=== PATIENT | female | born 1970 | race African-American/Black ===

== ENCOUNTER 2020-07-08 11:58 | Emergency (ER) | payer MEDICAID ==
[~2020-07-08] VITALS: Ht 170.2 cm; Wt 54.0 kg
[~2020-07-08 11:58] MED LIST: ANAPROX DS550 MG PO; ATI1 PO; FOL1 PO; ROBAXIN500 MG PO; SEROQUEL50 M1 PO; THI100 PO; ULTRAM50 MG PO
[2020-07-08 12:03] VITALS: Ht 170.2 cm; Wt 54.0 kg
[2020-07-08 15:19] VITALS: BP 125/75
== END 2020-07-08 15:20 | disposition home or self-care (01) ==
LOC: ED 11:58
DX: S93.402A Sprain of unspecified ligament of left ankle, initial encounter (principal); S00.83XA Contusion of other part of head, initial encounter; M79.675 Pain in left toe(s); M25.511 Pain in right shoulder; G89.29 Other chronic pain; Y04.2XXA Assault by strike against or bumped into by another person, initial encounter; Y93.89 Activity, other specified; Y92.89 Other specified places as the place of occurrence of the external cause; Y99.8 Other external cause status
CPT/HCPCS: J1885